=== PATIENT | female | born 1985 | race Caucasian/White ===

== ENCOUNTER 2018-03-09 07:16 | Emergency (ER) | payer MEDICAID ==
[~2018-03-09] VITALS: Ht 162.6 cm; Wt 54.4 kg
--- NOTE | 2018-03-09 07:23 | NUR ---
DIFFUSE ABD PAIN SINCE YESTERDAY. PLACED ON MONITOR. AWAITING MD ORDER
[2018-03-09] MEDS ORDERED: MORPHINE SULFATE INJ 4 MG/ML DISP.SYRIN ONE ×3 (07:36→09:54)
[2018-03-09] MEDS ORDERED: ONDANSETRON HCL/PF 4 MG/2 ML VIAL ONE (07:36)
[2018-03-09 07:54] LABS: BASOPHILS # (AUTO) 0.1 /CMM (0.0-0.2); BASOPHILS % (AUTO) 1.1 % (0.0-2.0); EOSINOPHILS % (AUTO) 0.2 % (0.0-6.0); HEMATOCRIT 43 % (33-45); HEMOGLOBIN 14.5 g/dL (11.5-14.8); LYMPHOCYTES # (AUTO) 1.5 /CMM (0.8-4.8); LYMPHOCYTES % (AUTO) 11.3 % (20.0-44.0); MEAN CORPUSCULAR HGB CONC 34 g/dl (31.0-36.0); MEAN CORPUSCULAR VOLUME 89 fL (82-100); MONOCYTES # (AUTO) 0.4 /CMM (0.1-1.30); MONOCYTES % (AUTO) 2.7 % (2.0-12.0); NEUTROPHILS # (AUTO) 11.3 /CMM (1.8-8.9); NEUTROPHILS % (AUTO) 84.7 % (43.0-81.0); PLATELET COUNT (AUTO) 154 /CMM (150-450); RDW COEFFICIENT OF VARIATION 13.2 (11.5-15.0); RED BLOOD CELL COUNT(AUTO) 4.84 MIL/uL (4.0-5.2); WHITE BLOOD COUNT (AUTO) 13.4 K/uL (4.3-11.0)
[2018-03-09] MEDS ORDERED: IV NS 0.9% 1,000 ML BAG IV ONE ×2 (08:00→08:30)
[2018-03-09] MEDS ORDERED: MORPHINE SULFATE INJ 2 MG/ML DISP.SYRIN IV ONE ×3 (08:00→10:30)
[2018-03-09] MEDS ORDERED: ONDANSETRON HCL/PF - ER 4 MG/2 ML VIAL IV ONE (08:00)
[2018-03-09] MEDS ORDERED: KETOROLAC TROMETHAMINE INJ 30 MG/ML VIAL IV ONE (08:30)
[2018-03-09] MEDS ORDERED: KETOROLAC TROMETHAMINE INJ 30 MG/ML VIAL ONE (08:43)
[2018-03-09 08:58] LABS: CALCIUM, SERUM 9.6 mg/dL (8.5-10.1); CREATININE 0.9 mg/dL (0.6-1.3); POTASSIUM 3.9 mmol/L (3.5-5.1)
[2018-03-09] MEDS ORDERED: IV NS 0.9% 500 ML IV ONE (09:00)
[2018-03-09] MEDS ORDERED: IOHEXOL-300 100 ML VIAL IV ONE (09:00)
[2018-03-09] MEDS ORDERED: CT SWABBABLE VALVE TRANS SET 1 EA INFUS.SET MC ONE (09:00)
[2018-03-09 09:03] LABS: ALBUMIN 4.4 g/dL (3.4-5.0); BILIRUBIN,TOTAL 0.4 mg/dL (0.2-1.0); TOTAL PROTEIN, SERUM 8.1 g/dL (6.4-8.2)
--- NOTE | 2018-03-09 09:05 | NUR ---
PT TAKEN TO CT
[2018-03-09 09:34] LABS: APPEARANCE,URINE CLOUDY (CLEAR); BILIRUBIN,URINE NEGATIVE (NEGATIVE); BLOOD, URINE NEGATIVE Ery/uL (NEGATIVE); COLOR,URINE YELLOW (YELLOW); KETONES,URINE NEGATIVE (NEGATIVE); LEUKOCYTE ESTERASE ,URINE NEGATIVE (NEGATIVE); NITRITE, URINE NEGATIVE (NEGATIVE); PH,URINE 8.5 (5.0-8.0); PROTEIN,URINE NEGATIVE (NEGATIVE); UGLUCOSE NEGATIVE (NEGATIVE); UROBILINOGEN,URINE 0.2 EU/dL (0.2)
[2018-03-09 09:44] LABS: BACTERIA,URINE Few /HPF (None Seen); RBC,URINE NONE SEEN /HPF (0-2); SQUAMOUS EPITHELIAL CELL,UR Few /HPF (None Seen); URINE AMORPHOUS PHOSPHATES Many /HPF (None Seen); WBC,URINE 0-2 /HPF (0-3)
--- NOTE | 2018-03-09 10:03 | NUR ---
VERBAL ORDER DR ROEPR MORPHINE 4 MG X1 IV
[2018-03-09 12:31] VITALS: BP 130/84
--- NOTE | 2018-03-09 12:31 | NUR ---
IV removed. Catheter intact and site benign. Pressure and 4x4 applied to site. No bleeding noted.
--- NOTE | 2018-03-09 12:31 | NUR ---
Patient discharged to home in stable condition. Written and verbal after care instructions given. Patient verbalizes understanding of instruction.
== END 2018-03-09 12:33 | disposition home or self-care (01) ==
LOC: ER 07:18
DX: N83.201 Unspecified ovarian cyst, right side (principal); D25.9 Leiomyoma of uterus, unspecified; J18.9 Pneumonia, unspecified organism; Y95 Nosocomial condition
CPT/HCPCS: 36415; 76856-TC; 80048-TC; 80076-TC; 80305; 81000-TC; 83690-TC; 84703-TC; 85025-TC; A4606; J1885; J2270; J2405; J7030; J7040; Q9967; Z7610

== ENCOUNTER 2023-09-22 07:17 | Emergency (ER) | payer MEDICAID ==
[~2023-09-22] VITALS: Ht 162.6 cm; Wt 57.6 kg
[2023-09-22 07:33] VITALS: TEMP 99.5
[2023-09-22] MEDS ORDERED: KETOROLAC TROMETHAMINE 15 MG/ML VIAL IV ONE (08:00)
[2023-09-22] MEDS ORDERED: IV NS 0.9% 1,000 ML BAG IV ONE (08:00)
[2023-09-22 08:06] LABS: BASOPHILS # (AUTO) 0.1 K/uL (0.0-0.2); BASOPHILS % (AUTO) 0.9 % (0.0-2.0); EOSINOPHILS # (AUTO) 0.1 K/uL (0.0-0.7); EOSINOPHILS % (AUTO) 1.5 % (0.0-6.0); HEMATOCRIT 41 % (33-45); HEMOGLOBIN 13.7 g/dL (11.5-14.8); LYMPHOCYTES # (AUTO) 0.3 K/uL (0.8-4.8); LYMPHOCYTES % (AUTO) 2.7 % (20.0-44.0); MEAN CORPUSCULAR HEMOGLOBIN 31 PG (26.0-33.0); MEAN CORPUSCULAR HGB CONC 34 g/dl (31.0-36.0); MEAN CORPUSCULAR VOLUME 91 fL (82-100); MONOCYTES # (AUTO) 0.1 K/uL (0.1-1.30); MONOCYTES % (AUTO) 1.5 % (2.0-12.0); NEUTROPHILS # (AUTO) 8.8 K/uL (1.8-8.9); NEUTROPHILS % (AUTO) 93.4 % (43.0-81.0); PLATELET COUNT (AUTO) 216 K/uL (150-450); RED BLOOD CELL COUNT(AUTO) 4.48 MIL/uL (4.0-5.2); RED CELL DISTRIBUTION WIDTH 13.7 % (11.5-15.0); WHITE BLOOD COUNT (AUTO) 9.4 K/uL (4.3-11.0)
[2023-09-22] MEDS ORDERED: KETOROLAC TROMETHAMINE 15 MG/ML VIAL ONE ×2 (08:13→08:40)
[2023-09-22 08:21] LABS: ALBUMIN 4.7 g/dL (3.4-5.0); BILIRUBIN,DIRECT 0.1 mg/dL (0.0-0.2); BILIRUBIN,TOTAL 0.4 mg/dL (0.2-1.0); CALCIUM, SERUM 9.9 mg/dL (8.5-10.1); CREATININE 0.8 mg/dL (0.6-1.3); POTASSIUM 3.1 mmol/L (3.5-5.1); TOTAL PROTEIN, SERUM 8.1 g/dL (6.4-8.2)
[2023-09-22 08:24] LABS: LACTIC ACID 1.7 mmol/L (0.4-2.0)
[2023-09-22 08:33] LABS: APPEARANCE,URINE CLEAR (CLEAR); BILIRUBIN,URINE NEGATIVE (NEGATIVE); BLOOD, URINE 1+ Ery/uL (NEGATIVE); COLOR,URINE YELLOW (YELLOW); KETONES,URINE NEGATIVE (NEGATIVE); LEUKOCYTE ESTERASE ,URINE NEGATIVE (NEGATIVE); NITRITE, URINE NEGATIVE (NEGATIVE); PREGNANCY TEST URINE QUAL NEGATIVE (NEGATIVE); PROTEIN,URINE NEGATIVE (NEGATIVE); UGLUCOSE NEGATIVE (NEGATIVE); UROBILINOGEN,URINE 0.2 EU/dL (0.2)
[2023-09-22 09:14] LABS: ADD URINE CULTURE NO; BACTERIA,URINE Rare /HPF (None Seen); SQUAMOUS EPITHELIAL CELL,UR Few /HPF (None Seen); WBC,URINE 0-2 /HPF (0-3)
[2023-09-22 09:46] VITALS: BP 116/69; O2SAT 98
[2023-09-22 12:16] LABS: BAND % (MANUAL) 4 % (0.0-5.0); EOSINOPHILS % (MANUAL) 1 % (0-4); LYMPHOCYTES % (MANUAL) 3 % (16-48); MONOCYTES % (MANUAL) 2 % (0-11.0); NEUTROPHILS % (MANUAL) 90 (42-76); PLATELET ESTIMATE ADEQUATE
[2023-09-22 12:17] LABS: ANISOCYTOSIS 1+; TEAR DROP CELLS 1+
== END 2023-09-22 09:47 | disposition home or self-care (01) ==
LOC: ER 07:17
DX: U07.1 COVID-19 (principal); M79.10 Myalgia, unspecified site; R10.2 Pelvic and perineal pain; Z98.890 Other specified postprocedural states; Z60.2 Problems related to living alone
CPT/HCPCS: 99284; 96374; 71045; 96361; 87426; 87804 ×2; 85025; 80048; 83605; 80076; 84703; 81001; 36415; 85007; J7030; J1885; C9803